=== PATIENT | female | born 1970 ===

== ENCOUNTER 2021-08-17 17:04 | Emergency (ER) | payer MEDICAID, OTHER ==
[~2021-08-17] VITALS: Ht 167.6 cm; Wt 84.4 kg
[2021-08-17 17:07] VITALS: BP 169/96
== END 2021-08-17 23:23 | disposition left against medical advice (07) ==
LOC: ER 17:04
DX: R51.9 Headache, unspecified (principal); Z20.822 Contact with and (suspected) exposure to COVID-19; Z53.21 Procedure and treatment not carried out due to patient leaving prior to being seen by health care provider
CPT/HCPCS: 36415; 87426